=== PATIENT | female | born 1960 | race African-American/Black ===

== ENCOUNTER 2018-12-06 11:34 | Emergency (ER) | payer OTHER ==
[~2018-12-06] VITALS: Ht 175.3 cm; Wt 62.2 kg
[2018-12-06 11:42] VITALS: Ht 175.3 cm; Wt 62.2 kg
[2018-12-06] MEDS ORDERED: ALBUTEROL 0.083% (NEB) 2.5 MG/3 ML AMP HHN STA (13:01)
[2018-12-06] MEDS ORDERED: DEXAMETHASONE 10 MG/ML 1 ML INJ IM ONE (13:30)
[2018-12-06] MEDS ORDERED: CEFTRIAXONE 1 GM INJ IM ONE (14:30)
[2018-12-06] MEDS ORDERED: LIDOCAINE 1% (MDV) 20 ML INJ SC ONE (14:30)
[2018-12-06] MEDS ORDERED: BECL10.62 IH (15:09)
[2018-12-06] MEDS ORDERED: DOXY100T21 PO (15:09)
--- NOTE | 2018-12-06 15:18 | ERD ---
ER Documentation Chief Complaint Chief Complaint Complains of a cough x 1 week Hx of Asthma HPI 58-year-old female presents with cough for the last week. Has a history of asthma and feels like she needs a breathing treatment. She takes Qvar and Ventolin at home although is out of Qvar. She finished course of Zithromax 3 weeks ago. She denies fevers. She denies chest pain, vomiting, abdominal pain. ROS All systems reviewed and are negative except as per history of present illness. Medications Home Meds Active Scripts Beclomethasone Dipropionate (Qvar Redihaler (80 MCG)) 10.6 Gm Hfa.aeroba, 10.6 GM IH BID for 7 Days, INH Prov:AMPARO MANJARREZ MD 12/06/18 Doxycycline Monohydrate* (Doxycycline Monohydrate*) 100 Mg Tablet, 100 MG PO BID for 7 Days, TAB Prov:AMPARO MANJARREZ MD 12/06/18 Allergies Allergies: Coded Allergies: Penicillins (Verified Allergy, Unknown, RASH, 12/06/18) PMhx/Soc Medical and Surgical Hx: pt denies Surgical Hx Hx Respiratory Disorders: Yes (ASTHMA) Hx Alcohol Use: Yes (STOPPED 27 YRS AGO) Hx Substance Use: Yes (STOPPED 27 YRS AGO) Hx Tobacco Use: Yes Smoking Status: Former smoker FmHx Family History: No diabetes, No coronary disease, No other Physical Exam Vitals Vital Signs Date Temp Pulse Resp B/P (MAP) Pulse Ox O2 O2 Flow FiO2 Time Delivery Rate 12/06/18 98.7 90 20 135/75 98 Room Air 15:25 (95) 12/06/18 78 20 97 21 14:00 12/06/18 99.5 102 20 141/78 97 11:42 (99) Physical Exam Const: No acute distress Head: Atraumatic Eyes: Normal Conjunctiva ENT: Normal External Ears, Nose and Mouth. TMs normal. Oropharynx normal. Neck: Full range of motion. No meningismus. Resp: Clear to auscultation bilaterally. Minimal forced wheeze without significant wheeze at rest with no rales or retractions. Cardio: Regular rate and rhythm, no murmurs Abd: Soft, non tender, non distended. Normal bowel sounds Skin: No petechiae or rashes Back: No midline or flank tenderness Ext: No cyanosis, or edema Neur: Awake and alert Psych: Normal Mood and Affect Results 24 hrs Current Medications Medications Dose Sig/Radha Start Time Status Last (Trade) Ordered Route PRN Stop Time Admin Dose Reason Admin 10 mg ONCE ONCE 12/06/18 DC 12/06/18 Dexamethasone IM 13:30 13:24 (Decadron) 12/06/18 13:31 Albuterol 5 mg ONCE STAT 12/06/18 DC 12/06/18 (Proventil HHN 13:01 14:00 0.083% (Neb)) 12/06/18 13:03 Ceftriaxone 1 gm ONCE ONCE 12/06/18 DC 12/06/18 Sodium IM 14:30 14:21 (Rocephin) 12/06/18 14:31 Lidocaine 20 ml ONCE ONCE 12/06/18 DC 12/06/18 (Xylocaine SC 14:30 14:21 1% (Mdv) 20 12/06/18 14:31 ml) Procedures/MDM Patient was given albuterol treatment and Decadron 10 mg IM. Chest X-ray 1V Interpreted by me: Soft Tissue: No acute abnormalities Bones: No acute abnormalities Mediastinum/Cardiac Silhouette/Lungs: Left lower lobe patchy mild infiltrate impression-mild patchy left lower lobe infiltrate. Patient is given Rocephin 1 g IM. Patient presents with history of asthma. She has no sick they have been wheezing here in the ER. She does have signs of pneumonia on x-ray. She has no evidence of hypoxemia or respiratory distress. She is well-appearing. She appears appropriate for outpatient treatment although uncertain if pneumonia is partially treated, persistent or just residual finding status post treatment of Zithromax. Nonetheless we will treat with doxycycline, continuation of Ventolin, primary care follow-up and return precautions. Patient's hospital or ER course was complicated by a muscle spasm in the left leg which she states was after the Rocephin. Patient improved with ambulation and taking personal ibuprofen. Patient has no calf swelling or Homans sign to suggest DVT. The patient was stable with no new complaints during the ER course. Clinically, there is no current evidence to suggest meningitis, sepsis, acute abdomen, pneumonia, stroke, acute coronary syndrome, pulmonary embolism, aortic dissection or any other emergent condition appearing to require further evaluation or hospitalization. Patient counseled regarding my diagnostic impression and care plan. Prior to discharge all questions answered. Pt agrees with treatment plan and understands strict return precautions. Pt is instructed to follow up with primary care provider within 24-48 hours. Precautionary instructions provided including instructions to return to the ER if not improving or for any worsening or changing symptoms or concerns. Departure Diagnosis: Primary Impression: Pneumonia Pneumonia type: due to unspecified organism Laterality: left Lung location: lower lobe of lung Qualified Codes: J18.1 - Lobar pneumonia, unspecified organism Additional Impression: Asthma Asthma severity: unspecified severity Asthma persistence: unspecified Asthma complication type: unspecified Qualified Codes: J45.909 - Un specified asthma, uncomplicated Condition: Stable Patient Instructions: Asthma, Pneumonia Additional Instructions: Recheck for new or worsening symptoms with primary care doctor. Continue ibuprofen for muscle pain. AMPARO MANJARREZ MD Dec 06, 2018 15:17
[2018-12-06 15:25] VITALS: BP 135/75; PULSE 90; RESP 20
== END 2018-12-06 15:26 | disposition home or self-care (01) ==
LOC: FTE 11:34
DX: J18.1 Lobar pneumonia, unspecified organism (principal); J45.909 Unspecified asthma, uncomplicated; Z87.891 Personal history of nicotine dependence
CPT/HCPCS: 71045; 94664; J0696; J1100; Z7610; 96372